=== PATIENT | female | born 1985 | race Caucasian/White ===

== ENCOUNTER 2020-06-05 06:14 | Inpatient (IN) | payer MEDICAID ==
[2020-05-29 15:33] LABS: BASOPHILS % (AUTO) 0.4 % (0-1); EOSINOPHILS % (AUTO) 0.5 % (0-6); LYMPHOCYTES # (AUTO) 2.3 X10'3 (1.1-4.8); LYMPHOCYTES % (AUTO) 20.8 % (21-51); MEAN CORPUSCULAR HEMOGLOBIN 31.3 PG (27.0-31.0); MEAN CORPUSCULAR HGB CONC 33.7 g/dL (33.0-36.5); MEAN PLATELET VOLUME 8.1 FL (7.4-10.4); MONOCYTES # (AUTO) 0.6 X10'3 (0-0.9); MONOCYTES % (AUTO) 5.2 % (2-12); NEUTROPHILS # (AUTO) 7.9 X10'3 (1.8-7.7); NEUTROPHILS % (AUTO) 73.1 % (42-75); PRE OP HEMATOCRIT 44.2 % (35.0-45.0); PRE OP HEMOGLOBIN 14.9 g/dL (12.0-16.0); PRE OP PLATELET COUNT 239 X10'3 (140-440); RED BLOOD COUNT 4.76 X10'6 (4.20-5.60); RED CELL DISTRIBUTION WIDTH 12.4 % (11.5-14.5)
[2020-05-29 15:49] LABS: ALBUMIN 3.8 G/DL (3.4-5.0); ALBUMIN/GLOBULIN RATIO 1.1 (1.1-1.5); ALKALINE PHOSPHATASE 65 IU/L (46-116); BLOOD UREA NITROGEN 19 MG/DL (7-18); BUN/CREATININE RATIO 27.9 (6.6-38.0); CALCIUM 9.2 MG/DL (8.5-10.1); CHLORIDE 106 MMOL/L (99-107); CREATININE 0.68 MG/DL (0.40-0.90); HCG SERUM QL NEGATIVE; PRE OP ALT 21 U/L (30-65); PRE OP ANION GAP 9 (8-16); PRE OP AST 14 U/L (10-37); PRE OP BILIRUB, TOTAL 0.2 MG/DL (0.0-1.0); PRE OP GLUCOSE 89 MG/DL (70-104); PRE OP POTASSIUM 4.1 MMOL/L (3.4-5.1); PRE OP SODIUM 142 MMOL/L (135-145); TOTAL CARBON DIOXIDE 26.9 MMOL/L (24-32); TOTAL PROTEIN 7.4 G/DL (6.4-8.2); eGFR > 90 ML/MIN
[2020-06-05] VITALS (19 sets, daily range): BP systolic 110–141; BP diastolic 60–96
[~2020-06-05] VITALS: Ht 162.6 cm; Wt 123.6 kg
[~2020-06-05 06:14] MED LIST: ACET-2319 PO; FAMO-128 PO; MULT1CAP66 PO; PANT-47 PO; clindamycin-Cleocin 900mg/D5W 50 ML IV ONE; famotidine 20mg tablet PO ONE; ringers solution, lacted 1,000 ML IV SCH
[2020-06-05] MEDS ORDERED: LIDOcaine 1% (10mg/ml) 2ml vial ONE (06:37)
[2020-06-05] MEDS ORDERED: ROPIVAcaine 0.5% (5mg/ml) 30ml vial ONE ×2 (07:42→10:36)
[2020-06-05] MEDS ORDERED: ceFAZolin 1000mg inj ONE (07:42)
[2020-06-05] MEDS ORDERED: scopolamine 1.5mg patch.TD72 TD ONE (08:20)
[2020-06-05] MEDS ORDERED: clindamycin phosphate 150mg/ml inj. ONE (08:22)
[2020-06-05] MEDS ORDERED: acetaminophen 1000 MG/100ml vial IV ONE (08:47)
[2020-06-05] MEDS ORDERED: sevoflurane 250ml liquid IH ONE (08:47)
[2020-06-05] MEDS ORDERED: midazolam 2 mg/2 ml injection ONE (08:53)
[2020-06-05] MEDS ORDERED: fentaNYL /PF 50mcg/ml 5ml ampule ONE (08:53)
[2020-06-05] MEDS ORDERED: ondansetron/PF 4mg/2ml inj IV PRN (09:40)
[2020-06-05] MEDS ORDERED: ringers solution, lacted 1,000 ML IV SCH (09:40)
[2020-06-05] MEDS ORDERED: morphine 2 MG/ML inj. syringe IV PRN (09:40)
[2020-06-05] MEDS ORDERED: morphine 4 MG/ML inj SYRINge IV PRN (09:40)
[2020-06-05] MEDS ORDERED: fentaNYL/PF 50MCG/1 ML 2ML syringe IV PRN (09:40)
[2020-06-05] MEDS ORDERED: ROPIVAcaine 0.2% (10 MG/5 ML) BOLUS INJECTION ADDCANAL PRN (09:40)
[2020-06-05] MEDS ORDERED: ondansetron/PF 4mg/2ml inj ONE (10:36)
[2020-06-05] MEDS ORDERED: LIDOcaine 2% (20mg/ml) 5ml vial ONE (10:36)
[2020-06-05] MEDS ORDERED: dexamethasone sod phosphate 4mg/ml inj. ONE (10:36)
[2020-06-05] MEDS ORDERED: glycopyrrolate 0.2mg/ml inj ONE (10:36)
[2020-06-05] MEDS ORDERED: propofol inj 20 ML IV ONE (10:36)
[2020-06-05] MEDS ORDERED: rocuronium 10mg/ml inj IV ONE (10:36)
[2020-06-05] MEDS ORDERED: neostigmine methylsulfate 1 MG/ML 10ml vial ONE (10:36)
--- NOTE | 2020-06-05 11:15 | NUR ---
Received from OR via BED, accompanied by Anesthesiologist DR HERNANDEZ--- and report given by Anesthesiolgist. PATIENT A&OX4, DENIES PAIN, V/S WNL, NEUROVASCULAR CHECKS INTACT, 20G PIV LUE, SCD ON, RIGHT KNEE DRESSING CDI WITH BRACE LOCKED IN EXTENSION
--- NOTE | 2020-06-05 11:35 | NUR ---
ZAY BRACE LOCKED INTO 0-30 DEGREES
[2020-06-05] MEDS: ROPIVAcaine 0.2%/PF PUMP/bolus 550 ML ADDCANAL SCH (11:42)
[2020-06-05] MEDS: fentaNYL/PF 50MCG/1 ML 2ML syringe IV PRN ×2 (11:43→11:47)
[2020-06-05] MEDS ORDERED: non-formulary drug (Acetaminophen/Dp-Hydram Hcl (Tylenol Pm) 2 TAB) PO PRN (11:45)
[2020-06-05] MEDS ORDERED: DEXTROSE 10 % AND 0.45 % NACL 1,000 ML IV SCH (11:55)
[2020-06-05] MEDS ORDERED: ondansetron 4mg rapidly disintigrating tab PO PRN (12:00)
--- NOTE | 2020-06-05 12:15 | NUR ---
PATIENT A&OX4, DENIES PAIN, V/S WNL, NEUROVASCULAR CHECKS INTACT, 20G PIV LUE, SCD ON, RIGHT KNEE DRESSING CDI WITH BRACE LOCKED IN 0-30 DEGREES. PATIENT TAKEN TO 4024B WITH ALL BELONGINGS AND HOOKED UP TO MONITORS IN ROOM AND REPORT GIVEN TO RN WHO HAS TAKEN OVER PATIENT CARE.
[2020-06-05] MEDS ORDERED: traMADol 50MG tablet PO PRN (14:10)
[2020-06-05] MEDS: morphine 4 MG/ML inj SYRINge IV PRN ×2 (15:09→19:34)
--- NOTE | 2020-06-05 18:31 | NUR ---
Problems reprioritized. Patient report given, questions answered & plan of care reviewed with Marylin SCHWAB.
--- NOTE | 2020-06-05 18:42 | NUR ---
ORIENTEE documentation: I have reviewed and agree with all interventions, assessments performed and documented by JOSSELIN DENISE.
--- NOTE | 2020-06-05 18:45 | NUR ---
Patient in room ORTHO 4024. I have received report from Beti SCHWAB and had the opportunity to ask questions and assume patient care.
[2020-06-05] MEDS: famotidine 20mg tablet PO SCH (19:34)
[2020-06-05] MEDS: pantoprazole 40mg Tablet.DR PO SCH (21:00)
[2020-06-06] MEDS: morphine 4 MG/ML inj SYRINge IV PRN ×2 (01:06→05:42)
[2020-06-06 02:00] VITALS: BP 113/65
[2020-06-06 06:00] VITALS: BP 108/91
--- NOTE | 2020-06-06 06:44 | NUR ---
Problems reprioritized. Patient report given, questions answered & plan of care reviewed with Laverne SCHWAB.
--- NOTE | 2020-06-06 07:03 | NUR ---
Patient in room ORTHO 4024. I have received report from Marylin SCHWAB and had the opportunity to ask questions and assume patient care.
[2020-06-06] MEDS: famotidine 20mg tablet PO SCH ×2 (07:14→20:15)
--- NOTE | 2020-06-06 08:55 | NUR ---
RN fax: Request for lower carb protein shakes. Pt s/p knee surgery this admit w/ hx gastric sleeve though timeline unknown. HERIBERTO recommends Ralf ROBERTS for wound healing needs post-op; notified. Addendum: 06/06/20 at [address] Amended: Links added.
[2020-06-06] MEDS ORDERED: oxyCODONE/APAP 10/325mg tablet PO PRN (09:00)
[2020-06-06 10:01] VITALS: BP 106/43
[2020-06-06] MEDS ORDERED: oxyCODONE/APAP 10/325mg tablet PO ONE (11:00)
[2020-06-06] MEDS: JUVEN Smoothie Arginine/Glut./Ca2+Bmb (Juven 19.3pkt) 240ml cup PO SCH ×2 (12:30→19:12)
[2020-06-06 14:00] VITALS: BP 102/46
[2020-06-06] MEDS: ROPIVAcaine 0.2%/PF PUMP/bolus 550 ML ADDCANAL SCH (14:22)
--- NOTE | 2020-06-06 14:35 | NUR ---
Sent fax for patients Oral supplement to be sent on her tray. Patient states that she has not gotten them since being here.
[2020-06-06] MEDS: diphenhydrAMINE 25mg capsule PO PRN ×2 (14:39→21:16)
[2020-06-06] MEDS: oxyCODONE/APAP 10/325mg tablet PO PRN ×2 (16:09→20:16)
--- NOTE | 2020-06-06 16:38 | NUR ---
Problems reprioritized. Patient report given, questions answered & plan of care reviewed with Oleksandr SCHWAB.
[2020-06-06 18:00] VITALS: BP 117/37
[2020-06-06] MEDS: pantoprazole 40mg Tablet.DR PO SCH (20:15)
[2020-06-06 22:00] VITALS: BP 102/55
[2020-06-07] MEDS: oxyCODONE/APAP 10/325mg tablet PO PRN ×3 (01:31→09:58)
--- NOTE | 2020-06-07 06:26 | NUR ---
Report given to Damien SCHWAB.
--- NOTE | 2020-06-07 06:30 | NUR ---
Patient in room ORTHO 4024. I have received report from JOSSELIN Flaherty and had the opportunity to ask questions and assume patient care.
[2020-06-07 06:45] VITALS: BP 106/51
--- NOTE | 2020-06-07 08:00 | NUR ---
Patient stated that she is not allergic to eggs, but that they "give her gas" so this allergy was removed from her chart. She requested to have eggs and rojas for breakfast. Sent fax down to dietary.
[2020-06-07] MEDS: famotidine 20mg tablet PO SCH (08:31)
[2020-06-07 10:07] VITALS: BP 118/47
[2020-06-07] MEDS: diphenhydrAMINE 25mg capsule PO PRN (10:53)
[2020-06-07] MEDS: JUVEN Smoothie Arginine/Glut./Ca2+Bmb (Juven 19.3pkt) 240ml cup PO SCH (12:06)
[2020-06-07] MEDS: ROPIVAcaine 0.2%/PF PUMP/bolus 550 ML ADDCANAL SCH (12:46)
--- NOTE | 2020-06-07 13:32 | NUR ---
Patient being discharged. Doctor Onesimo came in to check with patient to see if she had any questions regarding surgery. She said she "has no questions". IV catheter removed, tip intact. Patient stable. Going home with her . Patient has all belongings with her and had no questions or concerns before being discharged.
--- NOTE | 2020-06-07 14:00 | NUR ---
Student documentation: I have reviewed and agree with all interventions, assessments performed and documented by Aditi MUSTAFA.
== END 2020-06-07 13:33 | disposition home or self-care (01) | DRG 313 ==
LOC: UNDOADMIN 06:14 → PAS IN 06:14 → EDSTATUS 08:30 → PAS IN 11:28 → ORTHO 4S 12:21 → PAS IN 12:21
PROVIDERS: ADMIT Orthopaedic Surgery; ATTEND Orthopaedic Surgery
PROC: 0SBC4ZZ Excision of Right Knee Joint, Percutaneous Endoscopic Approach (ICD-10-PCS; 2020-06-05)
PROC: 0MU Bursae and Ligaments, Supplement (ICD-10-PCS; 2020-06-05)
PROC: 0SQC0ZZ Repair Right Knee Joint, Open Approach (ICD-10-PCS; principal; 2020-06-05 08:47)
DX: M22.01 Recurrent dislocation of patella, right knee (principal); M22.41 Chondromalacia patellae, right knee; M25.361 Other instability, right knee; Z20.822 Contact with and (suspected) exposure to COVID-19; Z88.2 Allergy status to sulfonamides; Z88.8 Allergy status to other drugs, medicaments and biological substances; Z88.0 Allergy status to penicillin; Z91.040 Latex allergy status
CPT/HCPCS: 36415; 80053; 82948; 84703; 85025; 87081; 87635; 93005; 97116; 97161; 97530; A4215; A4618; A6449; C1713; C1762; G0378; J0131; J0690; J1100; J2001; J2250; J2270; J2405; J2704; J2710; J2795; J3010; J3490; J7120; L1832; Q0163

== ENCOUNTER 2022-03-18 06:08 | Day surgery (SDC) | payer MEDICAID ==
[2022-03-13 15:36] LABS: BASOPHILS % (AUTO) 0.3 % (0-1); EOSINOPHILS % (AUTO) 0.4 % (0-6); LYMPHOCYTES # (AUTO) 2.3 X10'3 (1.1-4.8); LYMPHOCYTES % (AUTO) 25.5 % (21-51); MEAN CORPUSCULAR HEMOGLOBIN 30.6 PG (27.0-31.0); MEAN CORPUSCULAR HGB CONC 33.4 g/dL (33.0-36.5); MEAN CORPUSCULAR VOLUME 91.8 FL (78-98); MEAN PLATELET VOLUME 7.5 FL (7.4-10.4); MONOCYTES # (AUTO) 0.5 X10'3 (0-0.9); MONOCYTES % (AUTO) 5.9 % (2-12); NEUTROPHILS # (AUTO) 6.2 X10'3 (1.8-7.7); NEUTROPHILS % (AUTO) 67.9 % (42-75); PRE OP HEMATOCRIT 44.3 % (35.0-45.0); PRE OP HEMOGLOBIN 14.8 g/dL (12.0-16.0); PRE OP PLATELET COUNT 292 X10'3 (140-440); RED BLOOD COUNT 4.83 X10'6 (4.20-5.60); RED CELL DISTRIBUTION WIDTH 12.5 % (11.5-14.5)
[2022-03-13 15:41] LABS: HCG SERUM QL NEGATIVE
[2022-03-13 15:49] LABS: ALBUMIN 3.9 G/DL (3.4-5.0); ALBUMIN/GLOBULIN RATIO 1.1 (1.1-1.5); ALKALINE PHOSPHATASE 73 IU/L (46-116); BLOOD UREA NITROGEN 14 MG/DL (7-18); BUN/CREATININE RATIO 19.4 (6.6-38.0); CALCIUM 8.8 MG/DL (8.5-10.1); CHLORIDE 106 MMOL/L (99-107); CREATININE 0.72 MG/DL (0.40-0.90); PRE OP ALT 24 U/L (30-65); PRE OP ANION GAP 6 (8-16); PRE OP AST 20 U/L (10-37); PRE OP BILIRUB, TOTAL 0.4 MG/DL (0.0-1.0); PRE OP GLUCOSE 86 MG/DL (70-104); PRE OP POTASSIUM 3.7 MMOL/L (3.4-5.1); PRE OP SODIUM 139 MMOL/L (135-145); TOTAL CARBON DIOXIDE 27.4 MMOL/L (24-32); TOTAL PROTEIN 7.3 G/DL (6.4-8.2); eGFR > 90 ML/MIN
[2022-03-18] VITALS (15 sets, daily range): BP systolic 109–144; BP diastolic 64–77
[~2022-03-18] VITALS: Ht 165.1 cm; Wt 125.4 kg
[~2022-03-18 06:08] MED LIST changes: -FAMO-128 PO; +MEDR150V IM; -PANT-47 PO; -clindamycin-Cleocin 900mg/D5W 50 ML IV ONE; +vancomycin 1,500 MG in NS 300ml IV soln IV ONE
--- NOTE | 2022-03-18 07:00 | NUR ---
PEDAL PULSES PRESENT AND MARKED. STARTED ABX VANCOMYCIN AT 150ML/HR, PATIENT HAD A REACTION DURING THE LAST PART OF ABX ADMIN. STOPPED ABX, FLUSHED LINE AND CHECKED PATIENT FROM HEAD TO TOE. HER FACE AND SHOULDERS WERE FLUSH AND BRIGHT RED, BUT NO OTHER REACTION. NOTIFIED OR NURSE.
[2022-03-18] MEDS ORDERED: ROPIVAcaine 0.2%/PF PUMP/bolus 545 ML ADDCANAL SCH (08:30)
[2022-03-18] MEDS ORDERED: fentaNYL/PF 50MCG/1 ML 2ML syringe IV PRN ×2 (08:30)
[2022-03-18] MEDS ORDERED: morphine 4 MG/ML inj SYRINge IV PRN (08:30)
[2022-03-18] MEDS ORDERED: ringers solution, lacted 1,000 ML IV SCH (08:30)
[2022-03-18] MEDS ORDERED: ondansetron/PF 4mg/2ml inj IV PRN (08:30)
[2022-03-18] MEDS ORDERED: morphine 2 MG/ML inj. syringe IV PRN (08:30)
[2022-03-18] MEDS ORDERED: ROPIVAcaine 0.2% (10 MG/5 ML) BOLUS INJECTION ADDCANAL PRN (08:30)
[2022-03-18] MEDS ORDERED: midazolam 1 mg/ML 2ml injection ONE (09:21)
[2022-03-18] MEDS ORDERED: fentaNYL /PF 50mcg/ml 5ml ampule ONE (09:22)
[2022-03-18] MEDS ORDERED: propofol inj 20 ML IV ONE (09:25)
[2022-03-18] MEDS ORDERED: LIDOcaine 2% (20mg/ml) 5ml vial ONE (09:25)
[2022-03-18] MEDS ORDERED: rocuronium 10mg/ml inj IV ONE (09:25)
[2022-03-18] MEDS ORDERED: ROPIVAcaine 0.5% (5mg/ml) 30ml vial ONE ×3 (10:01→10:56)
[2022-03-18] MEDS ORDERED: ePHEDrine 50MG/ML INJ. ONE (10:49)
[2022-03-18] MEDS ORDERED: ondansetron/PF 4mg/2ml inj ONE (10:49)
[2022-03-18] MEDS ORDERED: dexamethasone sod phosphate 4mg/ml inj. ONE (10:49)
--- NOTE | 2022-03-18 11:10 | NUR ---
Received from OR via HOSPITAL BED, accompanied by Anesthesiologist DR HERNANDEZ and report given by Anesthesiolgist. PT IS GROGGY BUT WAKES EASLIY AND RESPONDS TO VERBAL STIMULI. PT PLACED ON BEDSIDE MONITOR, VSS. PT RECEIVING 8L 02 TO MASK ANS TOLERATING WELL WITH O2 SAT > 96%. WILL TITRATE DOWN TOLERATED. PT HAS 20G PIV TO RT HAND WITH LR INFUSING ORDERED. PT HAS DRSG WITH TOLU-WRAP TO RIGHT KNEE THAT IS CDI. PT IS RESTING WITH NO S/S DISTRESS OR DISCOMFORT NOTED AT THIS TIME. WILL CONTINUE TO ASSESS
[2022-03-18] MEDS ORDERED: acetaminophen 1,000mg/100ml IV 100 ML IV ONE (12:40)
--- NOTE | 2022-03-18 13:55 | NUR ---
PT HAS MET D/C CRITERIA. IV D/C'D. VSS. DRESSING C/D/I. I HAVE REVIEWED D/C INSTRUCTIONS WITH PATIENT AND SHE HAS VERBALIZED UNDERSTANDING OF INSTRUCTIONS. PATIENT D/C HOME WITH ALL BELONGINGS AND TRANSPORTED PT HOME.
== END 2022-03-18 13:46 | disposition home or self-care (01) ==
LOC: PAS 06:08 → UNDOADMIN 06:08 → PAS IN 06:08 → EDSTATUS 09:15 → PAS 13:46
PROVIDERS: ATTEND Orthopaedic Surgery
DX: M22.41 Chondromalacia patellae, right knee (principal); Z79.899 Other long term (current) drug therapy; Z98.890 Other specified postprocedural states; Z98.51 Tubal ligation status; Z90.49 Acquired absence of other specified parts of digestive tract; Z88.0 Allergy status to penicillin; Z88.2 Allergy status to sulfonamides; Z88.8 Allergy status to other drugs, medicaments and biological substances; Z91.040 Latex allergy status
CPT/HCPCS: 29877; 36415; 80053; 82948; 84703; 85025; 87081; 93005; A6222; J0131; J1100; J2250; J2270; J2405; J2704; J2795; J3010; J3370; J3490; J7040; J7120; Z7506; Z7508; Z7512; 76000; A4215; A4618; A6449; A7000